=== PATIENT | female | born 1995 | race Caucasian/White ===

== ENCOUNTER 2016-11-16 14:51 | Emergency (ER) | payer BC, OTHER ==
[~2016-11-16] VITALS: Ht 162.6 cm; Wt 54.5 kg
[2016-11-16 15:00] VITALS: Ht 162.6 cm; Wt 54.5 kg
[2016-11-16 15:42] LABS: URINE BLOOD (Dip) POC Negative (NEGATIVE)
--- NOTE | 2016-11-16 16:31 | ERD ---
ER Documentation Chief Complaint Date/Time DATE: 11/16/16 TIME: 16:27 Chief Complaint intermittent pelvic pain x 1 month HPI This a 21-year-old female who presents to the emergency department today complaining of intermittent pelvic pain for the past month. Patient states that it comes and goes and feels like menstrual cramps. States she took an Advil 800 mg yesterday and her pain improved.. States she has an IUD but has not had it checked for the past 3 years. States she has one sexual partner. Denies any dysuria, vaginal bleeding or vaginal discharge. Denies any pain currently. states she is going to school at [employer] and is leaving for [place] in 1 month and is concerned about an ectopic .. ROS All systems reviewed and are negative except as per history of present illness. Medications Home Meds Active Scripts Naproxen* (Naprosyn*) 500 Mg Tablet, 500 MG PO BID Y for PAIN AND/OR INFLAMMATION, #30 TAB Prov:KRYSTIN FLORES PA-C 11/16/16 Allergies Allergies: Coded Allergies: No Known Allergy (Unverified , 11/16/16) PMhx/Soc Medical and Surgical Hx: pt denies Medical Hx, pt denies Surgical Hx Hx Substance Use: Yes (marijuana daily) Hx Tobacco Use: Yes Smoking Status: Current some day smoker Physical Exam Vitals Vital Signs Date Time Temp Pulse Resp B/P Pulse Ox O2 Delivery O2 Flow Rate FiO2 11/16/16 15:00 97.8 76 16 124/69 100 Physical Exam Const: No acute distress Head: Atraumatic Eyes: Normal Conjunctiva ENT: Normal External Ears, Nose and Mouth. Neck: Full range of motion..~ No meningismus. Resp: Clear to auscultation bilaterally Cardio: Regular rate and rhythm, no murmurs Abd: Soft, non tender, non distended. Normal bowel sounds. No tenderness at [place] : Pelvic exam with no purulent discharge. No cervical motion tenderness. No vaginal bleeding. Skin: No petechiae or rashes Neur: Awake and alert Psych: Normal Mood and Affect Results 24 hrs Laboratory Tests Test 11/16/16 15:47 Bedside Urine pH (LAB) 7.0 Bedside Urine Protein (LAB) Negative Bedside Urine Glucose (UA) Negative Bedside Urine Ketones (LAB) Negative Bedside Urine Blood Negative Bedside Urine Nitrite (LAB) Negative Bedside Urine Leukocyte Esterase (L Negative DIAGNOSTIC IMAGING REPORT Patient: KIMBER BEE : 1995 Age: 21 Sex: F [id number] DOS: 11/16/16 0000 Ordering MD: KRYSTIN FLORES PA-C Location: [facility] Room/Bed: PROCEDURE: US Pelvis CLINICAL INDICATION: Pelvic pain TECHNIQUE: Sonographic evaluation of the pelvis was performed utilizing transabdominal technique. Curved array transabdominal transducer technique was utilized. Images were reviewed on the high-resolution PACS workstation. COMPARISON: No prior studies are available for comparison. FINDINGS: The uterus is normal in size, echogenicity, and morphology measuring about 6.1 x 2.9 x 4.4 cm. There is an intrauterine device within the uterus which is in the appropriate location. The endometrium is thin measuring 4 mm in diameter. No uterine myomas are visualized although evaluation is limited without transvaginal images. The right ovary measures 3.4 x 2.0 x 2.5 cm in dimension. The left ovary measures 3.5 x 1.8 x 2.3 cm in dimension. The ovaries are symmetric in size, echogenicity, and morphology. There is flow visualized to both ovaries by Doppler. There are no adnexal masses. There is no significant free fluid in the pelvis. No other incidental abnormality is identified. RPTAT: QQ IMPRESSION: 1. Intrauterine device within the appropriate location within the uterus. 2. Unremarkable bilateral ovaries. 3. Note that evaluation is limited without transvaginal images. .Bertha Rueda MD, MD Date Time Electronically viewed and signed by .Bertha Rueda MD, MD on 11/16/2016 16: 50 .T/ CC: KRYSTIN FLORES PA-C Procedures/MDM This a 21-year-old female who presents the emergency department today for intermittent pelvic pain for the past month. Patient does have an IUD in place. She denies any vaginal bleeding I do not feel that laboratory workup was necessary at this time. I did obtain a UA, urine and pelvic ultrasound UA is negative for infection test is negative Urine was sent for gonorrhea and chlamydia Ultrasound shows an intrauterine device within the appropriate location within the uterus. There is no significant free fluid within the pelvis. Unremarkable bilateral ovaries. There are no uterine myomas. There are no adnexal masses. Pelvic exam is benign. Patient has no cervical motion tenderness. Low suspicion for PID. Low suspicion for ectopic , delivering abscess, ovarian torsion. Symptoms at this time is consistent with intermittent pelvic pain of uncertain etiology. Have explained this to the patient. Patient does appear to have follow-up with a primary care doctor. I have encouraged her to make an appointment with [facility] ADMIN. Patient denied any pain currently. She will be given a prescription for Naprosyn for home.. She is instructed to follow-up with IT ADMIN. She was given a list of resources. At this time the patient is stable for discharge and outpatient management. Patient should follow up with their PCP in the next 1-2 days. They may return to the emergency department sooner for any persistent or worsening of symptoms. Patient understood and agreed with the plan. Departure Diagnosis: Primary Impression: Pelvic pain in female Condition: KRYSTIN Asher PA-C Nov 16, 2016 16:31
--- NOTE | 2016-11-16 16:51 | RADRPT ---
PROCEDURE: US Pelvis CLINICAL INDICATION: Pelvic pain TECHNIQUE: Sonographic evaluation of the pelvis was performed utilizing transabdominal technique. Curved array transabdominal transducer technique was utilized. Images were reviewed on the [employer] PACS workstation. COMPARISON: No prior studies are available for comparison. FINDINGS: The uterus is normal in size, echogenicity, and morphology measuring about 6.1 x 2.9 x 4.4 cm. Ther e is an intrauterine device within the uterus which is in the appropriate location. The endometrium is thin measuring 4 mm in diameter. No uterine myomas are visualized although evaluation is limite d without transvaginal images. The right ovary measures 3.4 x 2.0 x 2.5 cm in dimension. The left ovary measures 3.5 x 1.8 x 2.3 c m in dimension. The ovaries are symmetric in size, echogenicity, and morphology. There is flow vis ualized to both ovaries by Doppler. There are no adnexal masses. There is no significant free flui d in the pelvis. No other incidental abnormality is identified. RPTAT: QQ IMPRESSION: 1. Intrauterine device within the appropriate location within the uterus. 2. Unremarkable bilateral ovaries. 3. Note that evaluation is limited without transvaginal images. .Bertha Rueda MD, Date Time Electronically viewed and signed by .Bertha Rueda MD, MD on 11/16/2016 16:50 .T/
[2016-11-16] MEDS ORDERED: NAPR-260 PO (17:27)
== END 2016-11-16 17:25 | disposition home or self-care (01) ==
LOC: FTE 14:51
DX: R10.2 Pelvic and perineal pain (principal); F17.210 Nicotine dependence, cigarettes, uncomplicated
CPT/HCPCS: 76856; 81003; 87591